=== PATIENT | female | born 1980 | race African-American/Black ===

== ENCOUNTER 2017-04-11 19:24 | Emergency (ER) | payer OTHER ==
[~2017-04-11] VITALS: Ht 162.6 cm; Wt 90.7 kg
[2017-04-11 19:55] VITALS: BP 132/78
--- NOTE | 2017-04-11 20:06 | PHYS DOC ---
Past Medical History Past Medical History: No Pertinent History Past Surgical History: Alcohol Use: None Drug Use: None Adult General Chief Complaint Chief Complaint: LOWER EXT PAIN [facility] HPI Patient is a 37 year old female presents to the emergency department stating that she is having right lower leg pain and discomfort from the posterior knee down to the ankle. She states the area is swollen red warm and tender. She states that she is also having some numbness and tingling into her toes. She states that it's a pressure type feeling in her toes. She denies any fever, chills or any nausea vomiting. She denies any history of breath controlled. The current time. Denies any recent travel. Patient has had a tubal ligation in the past. Review of Systems Review of Systems Constitutional: Denies fever or chills [] Eyes: Denies change in visual acuity, redness, or eye pain [] HENT: Denies nasal congestion or sore throat [] Respiratory: Denies cough or shortness of breath [] Cardiovascular: No additional information not addressed in HPI [] GI: Denies abdominal pain, nausea, vomiting, bloody stools or diarrhea [] : Denies dysuria or hematuria [] Musculoskeletal: Denies back pain. Complaint of right lower leg pain and discomfort Integument: Denies rash or skin lesions [] Neurologic: Denies headache, focal weakness or sensory changes [] Endocrine: Denies polyuria or polydipsia [] Current Medications Current Medications Current Medications Medications (Trade) Dose Ordered Sig/[facility] Start Time Stop Time Status Last Admin Dose Admin Acetaminophen/ Hydrocodone Bitart (Lortab 5/325) 1 tab 1X ONCE 04/11/17 23:00 04/11/17 23:01 DC 04/11/17 22:30 1 TAB Ibuprofen (Motrin) 800 mg 1X ONCE 04/11/17 20:15 04/11/17 20:16 DC 04/11/17 20:41 800 MG Allergies Allergies Allergies Coded Allergies Type Severity Reaction Last Updated Verified No Known Drug Allergies 11/02/15 No Physical Exam Physical Exam Constitutional: Well developed, well nourished, no acute distress, non-toxic appearance. [] HENT: Normocephalic, atraumatic, bilateral external ears normal, oropharynx moist, no oral exudates, nose normal. [] Eyes: PERRLA, EOMI, conjunctiva normal, no discharge. [] Neck: Normal range of motion, no tenderness, supple, no stridor. [] Cardiovascular:Heart rate regular rhythm Lungs & Thorax: No respiratory distress noted Skin: Warm, dry, no erythema, no rash. [] Extremities: Right lower leg posterior from the knee down tenderness, slight redness noted, slight swelling noted warmth was noted. No cyanosis, no clubbing , ROM intact, no edema. Peripheral pulses 2+ cap refill brisk less than 2 seconds. Neurologic: Alert and oriented X 3, normal motor function, normal sensory function, no focal deficits noted. [] Psychologic: Affect normal, judgement normal, mood normal. [] Current Patient Data Vital Signs Vital Signs Date Time Temp Pulse Resp B/P (MAP) Pulse Ox O2 Delivery O2 Flow Rate FiO2 04/11/17 22:30 20 99 Room Air 04/11/17 19:55 98.0 94 132/78 (96) 98.0 EKG EKG [] Radiology/Procedures Radiology/Procedures [][facility] [address] [place] [address] IMAGING REPORT Signed PATIENT: LEONARDO ABAD ACCOUNT: [id number] : 1980 LOCATION: ER AGE: 37 SEX: F EXAM STATUS: REG ER ORD. PHYSICIAN: KIM SON APRN REASON: right lower leg pain, swelling, redness and tenderness PROCEDURE: VENOUS LOWER EXTREMITY RIGHT Right lower extremity venous doppler: Reason for examination: Right lower leg pain and swelling with redness and tenderness. The right lower extremity venous system was evaluated from the common femoral and greater saphenous veins distally to the calf veins with grayscale imaging, color-flow imaging and spectral analysis. There appears to be normal flow in the venous system. There is no evidence of deep venous thrombosis. There is normal response of the venous system to compression and augmentation. IMPRESSION: No deep venous thrombosis in the right lower extremity. Electronically signed by: Latha Douglas MD (04/11/2017 11:19 PM) [facility] DICTATED and SIGNED BY: LATHA DOUGLAS MD DATE: 04/11/17 [id number] CC: KIM SON APRN; NO PCP; NON,STAFF ~ Course & Med Decision Making Course & Med Decision Making Pertinent Labs and Imaging studies reviewed. (See chart for details) Patient was provided with ibuprofen upon visit to the emergency department. She states that the pain still continues to be discomfort. Ultrasound is here to take patient to radiology. Patient will be provided with hydrocodone. Ultrasound was negative per radiologist. Patient will be discharged home with recommendations for clindamycin for the next 10 days. Patient will be provided with hydrocodone for severe pain and discomfort she was instructed this medication will cause drowsiness do not take any be alert and oriented. Recommended Tylenol or ibuprofen for pain and discomfort elevation as much as possible. Patient will be discharged home in stable condition with signs and symptoms to return back to emergency department. Recommended that she follow up with her primary care physician in next 3-5 days. All questions and concerns have been answered at patient's bedside. [] Dragon Disclaimer Dragon Disclaimer This electronic medical record was generated, in whole or in part, using a voice recognition dictation system. Departure Departure Impression: Primary Impression: Cellulitis of right leg Disposition: HOME, SELF-CARE Condition: STABLE Referrals: NO PCP (PCP) Patient Instructions: Cellulitis, [id number] Additional Instructions: Your ultrasound was negative for any blood clots. Your being treated for a cellulitis which is an infection in the lower leg. Elevation as much as possible. Medication as prescribed such as the antibiotics. Hydrocodone for severe pain and discomfort. This medication will cause drowsiness do not take any be alert and oriented. Follow-up with your primary care physician in the next 3-5 days. Return back to emergency prior signs symptoms of become worse. Scripts Hydrocodone/Apap 5-325 (NORCO 5-325 TABLET) 1 Each Tablet 1 TAB PO PRN Q6HRS Y for PAIN, #10 TAB 0 Refills Prov: KIM SON APRN 04/11/17 Clindamycin Hcl (CLINDAMYCIN HCL) 150 Mg Capsule 3 CAP PO TID for 10 Days, CAP Prov: KIM SON APRN 04/11/17 KIM SON APRN Apr 11, 2017 20:06
[2017-04-11] MEDS: IBUPROFEN 800 MG TABLET. PO ONE (20:41)
[2017-04-11] MEDS: HYDROcodone/APAP 5/325MG 1 TAB TABLET PO ONE (22:30)
[2017-04-11] MEDS ORDERED: HYDR-971 PO (23:07)
[2017-04-11] MEDS ORDERED: CLIN150C14 PO (23:07)
--- NOTE | 2017-04-11 23:22 | RAD ---
Right lower extremity venous doppler: Reason for examination: Right lower leg pain and swelling with redness and tenderness. The right lower extremity venous system was evaluated from the common femoral and greater saphenous veins distally to the calf veins with grayscale imaging, color-flow imaging and spectral analysis. There appears to be normal flow in the venous system. There is no evidence of deep venous thrombosis. There is normal response of the venous system to compression and augmentation. IMPRESSION: No deep venous thrombosis in the right lower extremity. Electronically signed by: Latha Albrecht MD (04/11/2017 11:19 PM) [facility]
== END 2017-04-11 23:45 | disposition home or self-care (01) ==
LOC: ER 19:24
DX: L03.115 Cellulitis of right lower limb (principal)
CPT/HCPCS: 93971; 99284-25

== ENCOUNTER 2021-01-06 05:17 | Inpatient (IN) | payer OTHER ==
[~2021-01-06] VITALS: Ht 165.1 cm; Wt 95.4 kg
[~2021-01-06 05:17] MED LIST: CLIN150C15 PO; HYDR-3164 PO
[2021-01-06] MEDS ORDERED: PROCHLORPERAZINE 10 MG/2 ML VIAL. IV ONE (06:15)
--- NOTE | 2021-01-06 06:36 | PHYS DOC ---
Past Medical History Past Medical History: Migraines Past Surgical History: , Tubal ligation Smoking Status: Never Smoker Alcohol Use: None Drug Use: None General Adult EDM: Chief Complaint: HEADACHE HPI: HPI: 40 yo F PMH migraine headaches presents to the ED with complaints of posterior headache with associated nausea that started 5 days ago, has been waxing and waning, some relief with Excedrin Migraine and sumatriptan started by her PCP at [facility]. Describes pain as pressure and piercing in the back of her head, constant, nonradiating. No current nausea. Declines Compazine-reports causes severe anxiety. Excedrin Migraine headache dulls the pain. Denies any blunt head injury. No associated blurry vision, epigastric abdominal pain, numbing, sensorimotor deficits. No family history of hemorrhagic stroke or intracranial aneurysm. Review of Systems: Review of Systems: Constitutional: Denies fever or chills. [] Eyes: Denies change in visual acuity. [] HENT: Denies nasal congestion or sore throat. [] Respiratory: Denies cough or shortness of breath. [] Cardiovascular: Denies chest pain or edema. [] GI: Denies abdominal pain, vomiting, : Denies dysuria or vaginal bleeding Musculoskeletal: Denies back pain or joint pain. [] Integument: Denies rash or diaphoresis Neurologic: Denies neck stiffness, focal weakness or sensory changes. [] Endocrine: Denies polyuria or polydipsia. [] Lymphatic: Denies swollen glands. [] Psychiatric: Denies depression or anxiety. [] Heart Score: C/O Chest Pain: No Risk Factors: Risk Factors: DM, Current or recent (<one month) smoker, HTN, HLP, family history of CAD, obesity. Risk Scores: Score 0 - 3: 2.5% MACE over next 6 weeks - Discharge Home Score 4 - 6: 20.3% MACE over next 6 weeks - Admit for Clinical Observation Score 7 - 10: 72.7% MACE over next 6 weeks - Early Invasive Strategies Current Medications: Current Medications Medications (Trade) Dose Ordered Sig/[facility] Start Time Stop Time Status Last Admin Dose Admin Dexamethasone Sodium Phosphate (Decadron) 10 mg 1X ONCE 01/06/21 06:15 01/06/21 06:19 DC Diphenhydramine HCl (Benadryl) 25 mg 1X ONCE 01/06/21 06:15 01/06/21 06:19 DC Haloperidol Lactate (Haldol Inj) 5 mg 1X ONCE 01/06/21 06:30 01/06/21 06:31 Prochlorperazine Edisylate (Compazine) 10 mg 1X ONCE 01/06/21 06:15 01/06/21 06:16 Cancel Sodium Chloride 1,000 ml @ 1,000 mls/hr 1X ONCE 01/06/21 06:15 01/06/21 07:14 Allergies: Allergies: Allergies Coded Allergies Type Severity Reaction Last Updated Verified prochlorperazine Adverse Reaction Intermediate Anxiety 01/06/21 Yes Physical Exam: PE: Constitutional: Well developed, well nourished, HENT: Normocephalic, atraumatic, Eyes: PERRLA, EOMI, conjunctiva normal, no discharge. Neck: Normal range of motion, supple, no nuchal rigidity or meningismus Cardiovascular: S1/2 present, regular rhythm Lungs & Thorax: Speaking in full sentences, bilateral equal chest rise, no tachypnea or increased work of breathing Abdomen: soft, no tenderness, Skin: Warm, dry, no erythema, no rash. [] Back: No tenderness, no CVA tenderness. [] Extremities: No tenderness, no cyanosis, Neurologic: Alert and oriented X 3, normal motor function, normal sensory function, no focal deficits noted. [] Psychologic: Affect normal, judgement normal, mood normal. [] Current Patient Data: Vital Signs: Vital Signs Date Time Temp Pulse Resp B/P (MAP) Pulse Ox O2 Delivery O2 Flow Rate FiO2 01/06/21 05:42 65 18 96 01/06/21 05:25 97.2 152/98 (116) Room Air 97.2 EKG: EKG: [] Radiology/Procedures: Radiology/Procedures: IMAGING REPORT Signed PATIENT: LEONARDO ABAD ACCOUNT: [id number] : 1980 LOCATION: ER AGE: 40 SEX: F EXAM STATUS: REG ER ORD. PHYSICIAN: MONTSERRAT FERGUSON DO REASON: headache PROCEDURE: CT HEAD WO CONTRAST CT HEAD/BRAIN WO Date: 01/06/2021 6:21 AM Clinical Indication: headache Comparison: None. Technique: 5 mm axial tomographic images were obtained of the head without contrast. These were viewed on brain and bone windows. One or more of the following dose reduction techniques were utilized: Automated exposure control (AEC), Adjustment of mA and/or kV according to patient size, Use of iterative reconstruction technique such as ASiR, CT scan done according to ALARA and image gently/image wisely Findings: Small area of hypoattenuation adjacent to the left frontal. No intra- or extra-axial mass or fluid collection. No acute hemorrhage. The ventricles are normal in size, shape, and morphology. The torres-white matter junction is normal. The subarachnoid cisterns are patent. The visualized paranasal sinuses are normal. The visualized portions of the orbits and globes are normal. The mastoid air cells are clear. The business representative topogram shows no lytic lesion or fracture. Impression: Small area of hypoattenuation adjacent to the left frontal horn, possibly representing subacute or chronic ischemia. This could be further characterized with MRI. Electronically signed by: Bulmaro Pitts MD (01/06/2021 6:47 AM) [facility] DICTATED and SIGNED BY: BULMARO PITTS MD DATE: 01/06/21 [id number] 0 IMAGING REPORT Signed PATIENT: LEONARDO ABAD ACCOUNT: [id number] : 1980 LOCATION: ER AGE: 40 SEX: F EXAM STATUS: REG ER ORD. PHYSICIAN: MONTSERRAT FERGUSON DO REASON: posterior headache PROCEDURE: CT ANGIOGRAPHY HEAD AND NECK EXAM: CTA HEAD AND NECK W/WO CONTRAST DATE: 01/06/2021 6:48 AM INDICATION: posterior headache TECHNIQUE: CTA angiogram of the head and neck was obtained after IV bolus administration of 75 cc of Omnipaque 300. The images were sent to workstation and multiplanar reconstructions were obtained. Multiplanar reconstruction images to include MIP and 3-D reconstruction images are submitted. One or more of the following dose reduction techniques were utilized: Automated exposure control (AEC), Adjustment of mA and/or kV according to patient size, Use of iterative reconstruction technique such as ASiR, CT scan done according to ALARA and image gently/image wisely COMPARISON: Noncontrast CT head done earlier the same day. FINDINGS: CTA Head: Aplastic left A1 segment. The visualized distal internal carotid arteries, anterior and middle cerebral arteries are otherwise patent and normal caliber. The distal vertebral arteries, basilar artery, and posterior cerebral arteries are patent and normal caliber. No aneurysm or arteriovenous malformation is seen. CTA Neck: Right carotid: The right common carotid artery is patent and normal caliber. The carotid bifurcation is normal. No stenosis of the right internal carotid artery per NASCET criteria. The right external carotid artery is patent. Left carotid: The left common carotid artery is patent and normal caliber. The carotid bifurcation is normal. No stenosis of the left internal carotid artery per NASCET criteria. The left external carotid artery is patent. Right vertebral: The right vertebral artery is patent and normal caliber. Left vertebral: The left vertebral artery is patent and normal caliber. The visualized portions of the aortic arch are normal. The origins of the br achiocephalic and subclavian arteries are normal. No cervical lymphadenopathy. The thyroid gland is normal. The parotid and sub mandibular glands are normal. The visualized aerodigestive tract is unremarkable. The cervical spine is normal. The visualized portions of the lungs are clear. IMPRESSION: 1. No intracranial large vessel occlusion. 2. No stenosis or dissection of the cervical carotid or vertebral arteries. PQRS Compliance Statement - Stenosis calculations for CT, MR and conventional angiography are based upon measurement of the distal ICA diameter in accordance with the NASCET methodology. Electronically signed by: Bulmaro Pitts MD (01/06/2021 7:04 AM) [facility] DICTATED and SIGNED BY: BULMARO PITTS MD DATE: 01/06/21 [id number] 0 Course & Med Decision Making: Course & Med Decision Making Pertinent Labs and Imaging studies reviewed. (See chart for details) Concern for headache in the setting of abnormal CT findings concerning for left frontal horn subacute versus chronic ischemia. Patient with no history of CVA. Will admit for further medical management, neurology consultation placed. Patient stable at time of admission and agrees with this plan. I have spoken with the patient and/or caregivers. I have explained the patient's condition, diagnosis and treatment plan based on the information available to me at this time. I have answered the patient's and/or caregivers questions and answered any concerns. The patient and/or caregivers have as good an understanding of the patient's diagnosis, condition and treatment plan as can be expected at this point. The patient has been stabilized within the capability of the emergency department. The patient will be transported for further care and management or will be moved to an observation or inpatient service. I have communicated with the staff or medical practitioner taking over this patient's care. Dragon Disclaimer: Dragon Disclaimer: This electronic medical record was generated, in whole or in part, using a voice recognition dictation system. Departure Departure Impression: Primary Impression: Headache Additional Impression: Abnormal finding on CT scan Disposition: ADMITTED INPATIENT Admitting Physician: MICAELA (Dr. Palacios) Condition: STABLE Referrals: ALYSSA HENRY DO (PCP) MNOTSERRAT FERGUSON DO Jan 06, 2021 06:36
[2021-01-06] MEDS: IV NORMAL SALINE 1000ML BAG 1,000 ML IV ONE (06:48)
[2021-01-06] MEDS: HALOPERIDOL LACTATE 5 MG/ML VIAL. IVP ONE (06:49)
[2021-01-06] MEDS: diphenhydrAMINE 50 MG/ML VIAL IVP ONE (06:49)
[2021-01-06] MEDS: DEXAMETHASONE SOD PHOS 20 MG/5 ML VIAL. IV ONE (06:49)
--- NOTE | 2021-01-06 06:50 | RAD ---
CT HEAD/BRAIN WO Date: 01/06/2021 6:21 AM Clinical Indication: headache Comparison: None. Technique: 5 mm axial tomographic images were obtained of the head without contrast. These were view ed on brain and bone windows. One or more of the following dose reduction techniques were utilized: A utomated exposure control (AEC), Adjustment of mA and/or kV according to patient size, Use of iterati ve reconstruction technique such as ASiR, CT scan done according to ALARA and image gently/image gallo ly Findings: Small area of hypoattenuation adjacent to the left frontal. No intra- or extra-axial mass or fluid co llection. No acute hemorrhage. The ventricles are normal in size, shape, and morphology. The torres-whi te matter junction is normal. The subarachnoid cisterns are patent. The visualized paranasal sinuses are normal. The visualized portions of the orbits and globes are no rmal. The mastoid air cells are clear. The certified real estate appraiser topogram shows no lytic lesion or fracture. Impression: Small area of hypoattenuation adjacent to the left frontal horn, possibly representing subacute or ch ronic ischemia. This could be further characterized with MRI. Electronically signed by: Trey Pitts MD (01/06/2021 6:47 AM) [facility]
[2021-01-06] MEDS ORDERED: CONTRAST GIVEN. MC PRN (07:00)
--- NOTE | 2021-01-06 07:06 | RAD ---
EXAM: CTA HEAD AND NECK W/WO CONTRAST DATE: 01/06/2021 6:48 AM INDICATION: posterior headache TECHNIQUE: CTA angiogram of the head and neck was obtained after IV bolus administration of 75 cc of Omnipaque 300. The images were sent to workstation and multiplanar reconstructions were obtained. Mu ltiplanar reconstruction images to include MIP and 3-D reconstruction images are submitted. One or more of the following dose reduction techniques were utilized: Automated exposure control (AEC ), Adjustment of mA and/or kV according to patient size, Use of iterative reconstruction technique cornejo ch as ASiR, CT scan done according to ALARA and image gently/image wisely COMPARISON: Noncontrast CT head done earlier the same day. FINDINGS: CTA Head: Aplastic left A1 segment. The visualized distal internal carotid arteries, anterior and middle cerebr al arteries are otherwise patent and normal caliber. The distal vertebral arteries, basilar artery, a nd posterior cerebral arteries are patent and normal caliber. No aneurysm or arteriovenous malformati on is seen. CTA Neck: Right carotid: The right common carotid artery is patent and normal caliber. The carotid bifurcation is normal. No stenosis of the right internal carotid artery per NASCET criteria. The right external c arotid artery is patent. Left carotid: The left common carotid artery is patent and normal caliber. The carotid bifurcation is normal. No stenosis of the left internal carotid artery per NASCET criteria. The left external carot id artery is patent. Right vertebral: The right vertebral artery is patent and normal caliber. Left vertebral: The left vertebral artery is patent and normal caliber. The visualized portions of the aortic arch are normal. The origins of the brachiocephalic and subclav kyrie arteries are normal. No cervical lymphadenopathy. The thyroid gland is normal. The parotid and submandibular glands are no rmal. The visualized aerodigestive tract is unremarkable. The cervical spine is normal. The visualized portions of the lungs are clear. IMPRESSION: 1. No intracranial large vessel occlusion. 2. No stenosis or dissection of the cervical carotid or vertebral arteries. PQRS Compliance Statement - Stenosis calculations for CT, MR and conventional angiography are based u kira measurement of the distal ICA diameter in accordance with the NASCET methodology. Electronically signed by: Trey Pitts MD (01/06/2021 7:04 AM) [facility]
[2021-01-06] MEDS: IOHEXOL 300 MG/ML 100ML VIAL. IV ONE (07:24)
--- NOTE | 2021-01-06 13:15 | PDOC2 ---
NEUROLOGY CONSULT Date of Service DOS: DATE: 01/06/21 TIME: 13:08 Reason for Consult Reason for Consult: Migraines, abnormal head CT Referring Physician Referring Physician: Dr. Palacios Source Source: Chart review, Patient History of Present Illness History of Present Illness The patient is a 40-year-old right-handed female with a history of migraine headaches with photo phonophobia and nausea dating back several years. Only recently did she see a primary care physician, Dr. Perez, who has started her on as needed Excedrin and sumatriptan. She has had a bad headache for the past 5 days with migraine symptoms, which has been refractory to the sumatriptan and Excedrin. She presented to the emergency department. Currently she has a 0/10 headache after receiving migraine cocktail of Haldol/Benadryl/Decadron. She would like to go home. Past Medical History CENTRAL NERVOUS SYSTEM: Migraine Psych: Anxiety Past Surgical History Past Surgical History: , Tubal Ligation Family History Family History: Other (Several family members have migraine) Social History Social History , smokes marijuana every day, no tobacco, rare alcohol, works at a hospital Current Medications Current Medications Current Medications Dexamethasone Sodium Phosphate (Decadron) 10 mg 1X ONCE IV Last administered on 01/06/21at 06:49; Start 01/06/21 at 06:15; Stop 01/06/21 at 06:19; Status DC Prochlorperazine Edisylate (Compazine) 10 mg 1X ONCE IV ; Start 01/06/21 at 06:15; Stop 01/06/21 at 06:16; Status Cancel Diphenhydramine HCl (Benadryl) 25 mg 1X ONCE IVP Last administered on 01/06/21at 06:49; Start 01/06/21 at 06:15; Stop 01/06/21 at 06:19; Status DC Sodium Chloride 1,000 ml @ 1,000 mls/hr 1X ONCE IV Last administered on 01/06/21at 06:48; Start 01/06/21 at 06:15; Stop 01/06/21 at 07:14; Status DC Haloperidol Lactate (Haldol Inj) 5 mg 1X ONCE IVP Last administered on 01/06/21at 06:49; Start 01/06/21 at 06:30; Stop 01/06/21 at 06:31; Status DC Iohexol (Omnipaque 300 Mg/ml) 75 ml 1X ONCE IV Last administered on 01/06/21at 07:24; Start 01/06/21 at 07:00; Stop 01/06/21 at 07:01; Status DC Info (CONTRAST GIVEN -- Rx MONITORING) 1 each PRN DAILY PRN [facility] SEE COMMENTS; Start 01/06/21 at 07:00; Stop 01/08/21 at 06:59 Active Scripts Active [place] 5-325 Tablet (Acetaminophen/Hydrocodone Bitart) 1 Each Tablet 1 Tab PO PRN Q6HRS PRN Clindamycin Hcl 150 Mg Capsule 3 Cap PO TID 10 Days Allergies Allergies: Coded Allergies: prochlorperazine (Verified Adverse Reaction, Intermediate, Anxiety, 01/06/21) ROS Review of System Negative for fever, chills, weight loss, shortness of breath, chest pain, indigestion, hematochezia, melena, and dysuria. Full 14-point review of systems is negative. Physical Exam Physical Examination General: Well-developed, well-nourished black female in no acute distress, but room is dark HEENT:Fundoscopic exam unremarkable Neck: Supple without bruit, no meningismus Musculoskeletal: Stability:see neurologic. Gait exam:see neurologic. Tone:see neurologic.Strength:see neurologic. Neurological: Mental Status:intact, orientation, memory, attention span/concentration, language, fund of knowledge normal. Cranial Nerves:Pupils equal and reactive to light, extraocular movements areintact, visual gentile are full to confrontation. Facial sensation is normal. There is no facial asymmetry. Vestibulo-ocular reflex is intact. Palate elevates and tongue protrudes in midline. All other cranial related problems are negative except as mentioned before.Reflexes:2+ and symmetric with flexor plantar responses. Motor:5/5 strength with normal tone and bulk. Coordination:Finger-nose finger and ihsp-nc-reys testing are normal. Rapid alternating movements and fine finger movements are intact. Gait:Not tested. Sensory:Normal pinprick, vibration, light touch, proprioception. Vitals VITALS Vital Signs Date Time Temp Pulse Resp B/P (MAP) Pulse Ox O2 Delivery O2 Flow Rate FiO2 01/06/21 06:49 60 18 96 01/06/21 05:25 97.2 152/98 (116) Room Air 97.2 Images Images CTA HEAD AND NECK W/WO CONTRAST DATE: 01/06/2021 6:48 AM INDICATION: posterior headache TECHNIQUE: CTA angiogram of the head and neck was obtained after IV bolus administration of 75 cc of Omnipaque 300. The images were sent to workstation and multiplanar reconstructions were obtained. Multiplanar reconstruction images to include MIP and 3-D reconstruction images are submitted. One or more of the following dose reduction techniques were utilized: Automated exposure control (AEC), Adjustment of mA and/or kV according to patient size, Use of iterative reconstruction technique such as ASiR, CT scan done according to ALARA and image gently/image wisely COMPARISON: Noncontrast CT head done earlier the same day. FINDINGS: CTA Head: Aplastic left A1 segment. The visualized distal internal carotid arteries, anterior and middle cerebral arteries are otherwise patent and normal caliber. The distal vertebral arteries, basilar artery, and posterior cerebral arteries are patent and normal caliber. No aneurysm or arteriovenous malformation is seen. CTA Neck: Right carotid: The right common carotid artery is patent and normal caliber. The carotid bifurcation is normal. No stenosis of the right internal carotid artery per NASCET criteria. The right external carotid artery is patent. Left carotid: The left common carotid artery is patent and normal caliber. The carotid bifurcation is normal. No stenosis of the left internal carotid artery per NASCET criteria. The left external carotid artery is patent. Right vertebral: The right vertebral artery is patent and normal caliber. Left vertebral: The left vertebral artery is patent and normal caliber. The visualized portions of the aortic arch are normal. The origins of the brachiocephalic and subclavian arteries are normal. No cervical lymphadenopathy. The thyroid gland is normal. The parotid and submandibular glands are normal. The visualized aerodigestive tract is unremarkable. The cervical spine is normal. The visualized portions of the lungs are clear. IMPRESSION: 1. No intracranial large vessel occlusion. 2. No stenosis or dissection of the cervical carotid or vertebral arteries. CT HEAD/BRAIN WO Date: 01/06/2021 6:21 AM Clinical Indication: headache Comparison: None. Technique: 5 mm axial tomographic images were obtained of the head without contrast. These were viewed on brain and bone windows. One or more of the following dose reduction techniques were utilized: Automated exposure control (AEC), Adjustment of mA and/or kV according to patient size, Use of iterative reconstruction technique such as ASiR, CT scan done according to ALARA and image gently/image wisely Findings: Small area of hypoattenuation adjacent to the left frontal. No intra- or extra- axial mass or fluid collection. No acute hemorrhage. The ventricles are normal in size, shape, and morphology. The torres-white matter junction is normal. The subarachnoid cisterns are patent. The visualized paranasal sinuses are normal. The visualized portions of the orbits and globes are normal. The mastoid air cells are clear. The appellate conferee topogram shows no lytic lesion or fracture. Impression: Small area of hypoattenuation adjacent to the left frontal horn, possibly representing subacute or chronic ischemia. This could be further characterized with MRI. Assessment/Plan Assessment/Plan Impression: Migraine headache, status migrainosus, much better after migraine cocktail. I find no evidence of any other neurological process Abnormal head CT, I am not impressed Anxiety, claustrophobia Recommendations: Continue as needed sumatriptan and Excedrin Add daily prevention medication. I discussed risk, benefits, alternatives, side effects, including possibility of serotonin syndrome, I will add on escitalopram 10 mg daily, electronically prescribed from my office Follow-up with me or my nurse practitioner in 2 months. MRI of the brain, Dr. Edwards has written sedation orders Okay for discharge after MRI unless it is abnormal. Thank you for letting me help with the patient's care. EVENS PATEL MD Jan 06, 2021 13:14
--- NOTE | 2021-01-06 15:35 | PDOC1 ---
History and Physical Date of Admission Date of Admission DATE: 01/06/21 TIME: 15:30 Source Source: Chart review, Patient History of Present Illness History of Present Illness Ms. Obrien is a 40 yo F PMH migraine headaches admit with htn and marked headache. She has a new posterior headache with associated nausea. pain has gone and returned for a few days, worse today. 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 DAVIS has been a little better with Excedrin Migraine and sumatriptan No current nausea. no other meds, no Htn meds, BP up now/ she donates plasma frequently and her BP is usually normal there. Currently she has a 0/10 headache after receiving migraine cocktail of Haldol/Benadryl/Decadron. Past Medical History CENTRAL NERVOUS SYSTEM: Migraine Psych: Anxiety Past Surgical History Past Surgical History: , Tubal Ligation Social History Smoke: No ALCOHOL: none Drugs: None Current Problem List Problem List Problems Medical Problems: (1) Abnormal finding on CT scan Status: Acute (2) Headache Status: Acute Current Medications Current Medications Current Medications Dexamethasone Sodium Phosphate (Decadron) 10 mg 1X ONCE IV Last administered on 01/06/21at 06:49; Start 01/06/21 at 06:15; Stop 01/06/21 at 06:19; Status DC Prochlorperazine Edisylate (Compazine) 10 mg 1X ONCE IV ; Start 01/06/21 at 06:15; Stop 01/06/21 at 06:16; Status Cancel Diphenhydramine HCl (Benadryl) 25 mg 1X ONCE IVP Last administered on 01/06/21at 06:49; Start 01/06/21 at 06:15; Stop 01/06/21 at 06:19; Status DC Sodium Chloride 1,000 ml @ 1,000 mls/hr 1X ONCE IV Last administered on 01/06/21at 06:48; Start 01/06/21 at 06:15; Stop 01/06/21 at 07:14; Status DC Haloperidol Lactate (Haldol Inj) 5 mg 1X ONCE IVP Last administered on 01/06/21at 06:49; Start 01/06/21 at 06:30; Stop 01/06/21 at 06:31; Status DC Iohexol (Omnipaque 300 Mg/ml) 75 ml 1X ONCE IV Last administered on 01/06/21at 07:24; Start 01/06/21 at 07:00; Stop 01/06/21 at 07:01; Status DC Info (CONTRAST GIVEN -- Rx MONITORING) 1 each PRN DAILY PRN [facility] SEE COMMENTS; Start 01/06/21 at 07:00; Stop 01/08/21 at 06:59 Lorazepam (Ativan Inj) 1 mg 1X ONCE IVP ; Start 01/06/21 at 13:00; Stop 01/06/21 at 13:01; Status DC Active Scripts Active [place] 5-325 Tablet (Acetaminophen/Hydrocodone Bitart) 1 Each Tablet 1 Tab PO PRN Q6HRS PRN Clindamycin Hcl 150 Mg Capsule 3 Cap PO TID 10 Days Allergies Allergies: Coded Allergies: prochlorperazine (Verified Adverse Reaction, Intermediate, Anxiety, 01/06/21) ROS General: No: Chills, Night Sweats, Fatigue, Malaise, Appetite, Other PSYCHOLOGICAL ROS: YES: Anxiety, Other (claustrophobic); No: Behavioral Disorder, Concentration difficultie, Decreased libido, Depression, Disorientation, Hallucinations, Hostility, Irritablity, Memory difficulties, Mood Swings, Obsessive thoughts, Physical abuse, Sexual abuse, Sleep disturbances, Suicidal ideation Eyes: No Blurry vision, No Decreased vision, No Double vision, No Dry eyes, No Excessive tearing, No Eye Pain, No Itchy Eyes, No Loss of vision, No Photophobia, No Scotomata, No Uses contacts, No Uses glasses, No Other HEENT: YES: Heacaches Hematological and Lymphatic: No: Bleeding Problems, Blood Clots, Blood Transfusions, Brusing, Night Sweats, Pallor, Swollen Lymph Nodes, Other Respiratory: No: Cough, Hemoptysis, Orthopnea, Pleuritic Pain, Shortness of breath, SOB with excertion, Sputum Changes, Stridor, Tachypnea, Wheezing, Other Cardiovascular: No Chest Pain, No Palpitations, No Orthopnea, No Paroxysmal Noc. Dyspnea, No Edema, No Lt Headedness, No Other Gastrointestinal: No Nausea, No Vomiting, No Abdominal Pain, No Diarrhea, No Constipation, No Melena, No Hematochezia, No Other Musculoskeletal: No Gait Disturbance, No Joint Pain, No Joint Stiffness, No Joint Swelling, No Muscle Pain, No Muscular Weakness, No Pain In:, No Swelling In:, No Other Neurological: No Behavorial Changes, No Bowel/Bladder ControlChng, No Confusion, No Dizziness, No Gait Disturbance, No Headaches, No Impaired Coord/balance, No Memory Loss, No Numbness/Tingling, No Seizures, No Speech Problems, No Tremors, No Visual Changes, No Weakness, No Other Skin: No Dry Skin, No Eczema, No Hair Changes, No Lumps, No Mole Changes, No Mottling, No Nail Changes, No Pruritus, No Rash, No Skin Lesion Changes, No Other, No Acne Physical Exam General: Alert, Cooperative, No acute distress HEENT: Atraumatic, PERRLA Lungs: Clear to auscultation Abdomen: Normal bowel sounds, Soft Rectal Exam: not examined Extremities: No clubbing, No edema Skin: No rashes, No significant lesion Neuro: Normal tone Psych/Mental Status: Mood NL Vitals Vitals Vital Signs Date Time Temp Pulse Resp B/P (MAP) Pulse Ox O2 Delivery O2 Flow Rate FiO2 01/06/21 06:49 60 18 96 01/06/21 05:25 97.2 152/98 (116) Room Air 97.2 VTE Prophylaxis Ordered VTE Prophylaxis Devices: No VTE Pharmacological Prophylaxi: No Assessment/Plan Assessment/Plan headache hx of migrane obese, BMI 35 htn, reactive CT scan head showed some diffuse thinning, MRI ordered, Neuro consult following Dr. Smith added Lexapro 10 daily Justifications for Admission Other Justification ABIMBOLA MASSEY MD Jan 06, 2021 15:35
--- NOTE | 2021-01-06 16:25 | RAD ---
EXAMINATION: Magnetic resonance imaging (MRI) of the brain and brainstem without contrast 01/06/2021 2 :10 PM HISTORY: Abnormal CT head. TECHNIQUE: Multiplanar multi-weighted MRI of the brain and brainstem was performed without intravenou s contrast using the general brain protocol. COMPARISON: None available. FINDINGS: The scalp and calvarium are normal. The superior sagittal sinus demonstrates normal venous flow. The corpus callosum is normal in shape and signal intensity. Cerebellar tonsils extend 3 mm below the le aurora of foramen magnum. Otherwise posterior fossa is normal in appearance. The pituitary and sella are normal. The brainstem and craniocervical junction are unremarkable. Remote ischemic changes are jillian ntified in the left sanford radiata with involvement of the left caudate head. Diffusion weighted images reveal no hyperintensities to suggest acute cerebral infarction. The suscep tibility weighted sequences reveal no evidence of acute or chronic hemorrhage. The ventricles are nor mal in size and position without evidence of hydrocephalus. The paranasal sinuses are normal. The visualized portions of the mastoids are unremarkable. The orbi ts appear normal. Normal flow voids are demonstrated in the carotid arteries and basilar artery. IMPRESSION: 1. No evidence for acute or subacute ischemia. 2. Small territory remote ischemic changes involving the left sanford radiata and left caudate head. T here is associated encephalomalacia and gliosis. Findings correspond with abnormality identified on t he CT. Electronically signed by: Rebekah Hogan MD (01/06/2021 4:22 PM) [facility]
--- NOTE | 2021-01-06 16:41 | PDOC3 ---
Discharge Summary Visit Information Date of Admission: Jan 06, 2021 Date of Discharge: Jan 06, 2021 Final Diagnosis migrane headache abdnormal finding on CT scan brain Problems Medical Problems: (1) Abnormal finding on CT scan Status: Acute (2) Headache Status: Acute Brief Hospital Course Allergies Allergies Coded Allergies Type Severity Reaction Last Updated Verified prochlorperazine Adverse Reaction Intermediate Anxiety 01/06/21 Yes Vital Signs Vital Signs Date Time Temp Pulse Resp B/P (MAP) Pulse Ox O2 Delivery O2 Flow Rate FiO2 01/06/21 06:49 60 18 96 01/06/21 05:25 97.2 152/98 (116) Room Air 97.2 Brief Hospital Course Ms. Obrien is a 40 old female, admit with htn, headache, migranous headache, CT scan showed Small area of hypoattenuation adjacent to the left frontal horn, possibly rep resenting subacute or chronic ischemia. MRI was done, 1. No evidence for acute or subacute ischemia. 2. Small territory remote ischemic changes involving the left sanford radiata and left caudate head. There is associated encephalomalacia and gliosis. Findings correspond with abnormality identified on the CT. [email or web address] with Dr. Smith 2-4 weeks Discharge Information Condition at Discharge: Improved Follow Up: Weeks Disposition/Orders: D/C to Home No Active Prescriptions or Reported Meds Patient Instructions Patient Instructions A/D same Justicifation of Admission Dx: Justifications for Admission: Justification of Admission Dx: No ABIMBOLA MASSEY MD Jan 06, 2021 16:41
[2021-01-06 17:30] VITALS: BP 165/98
== END 2021-01-06 16:38 | disposition home or self-care (01) | DRG 103 ==
LOC: ER 05:17 → 6 SOUTH 07:51 → ED HOLD 08:45 → UNDOADMIN 08:55
PROVIDERS: ADMIT Internal Medicine; ATTEND Internal Medicine
DX: G43.909 Migraine, unspecified, not intractable, without status migrainosus (principal); E66.9 Obesity, unspecified; Z68.35 Body mass index [BMI] 35.0-35.9, adult; Z88.8 Allergy status to other drugs, medicaments and biological substances
CPT/HCPCS: 70450; 70496; 70498; 70551; 96361; 96374; 96375; J1100; J1200; J1630; J7030; Q9967; 99285-25; G0378